=== PATIENT | female | born 1955 | race Caucasian/White ===

== ENCOUNTER 2020-10-06 16:08 | Day surgery (SDC) | payer BC ==
[2020-10-06] MEDS ORDERED: LACTATED RINGERS 1,000 ML IV ONE (16:40)
[2020-10-06] MEDS ORDERED: DEXAMETHASONE SOD PHOSPHATE 4 MG/ML 1 ML VIAL IV ONE ×2 (17:00→17:41)
[2020-10-06] MEDS ORDERED: ONDANSETRON 4 MG/2 ML VIAL IVP ONE ×2 (17:00→17:41)
[2020-10-06] MEDS ORDERED: fentaNYL (PF) 50 MCG/ML 2 ML AMP IVP ONE (17:26)
[2020-10-06] MEDS ORDERED: MIDAZOLAM 2 MG/2 ML VIAL IVP ONE (17:26)
[2020-10-06 17:40] VITALS: RESP 16; TEMP 98.8
--- NOTE | 2020-10-06 18:17 | P.HPOR ---
History of Present Illness H&P Date: 10/06/20 Chief Complaint: Left wrist fracture 65-year-old patient tripped and fell injuring her left wrist. X-rays were obtained demonstrating a displaced comminuted fracture distal radius. Review of Systems Constitutional: Reports as per HPI Past Medical History Past Medical History: Thyroid Disorder Additional Past Medical History / Comment(s): SKIN BRUISES EASILY History of Any Multi-Drug Resistant Organisms: None Reported Past Surgical History: Hernia Repair, Orthopedic Surgery Additional Past Surgical History / Comment(s): D & C Past Anesthesia/Blood Transfusion Reactions: Family History of Problems w/ Anesthesia Additional Past Anesthesia/Blood Transfusion Reaction / Comment(s): father had confusion and agitation with anesthesia Smoking Status: Never smoker Past Alcohol Use History: Occasional Past Drug Use History: None Reported - Past Family History Father Family Medical History: Cancer, CVA/TIA, Hypertension Additional Family Medical History / Comment(s): bowel,bladder,prostate. at age 85 Mother Family Medical History: Dementia Additional Family Medical History / Comment(s): at age 85 Medications and Allergies Home Medications Medication Instructions Recorded Confirmed Type Levothyroxine Sodium [Synthroid] 150 mcg PO DAILY 11/17/14 10/06/20 History HYDROcodone/APAP 7.5-325MG [[place] 1 each PO Q6HR PRN #28 tab 10/06/20 Rx 7.5] Allergies Allergy/AdvReac Type Severity Reaction Status Date / Time latex Allergy red skin Verified 10/06/20 16:43 Sulfa (Sulfonamide Allergy lips Verified 10/06/20 16:43 Antibiotics) swelling sulfamethoxazole Allergy Swelling Verified 10/06/20 17:42 [From Bactrim] trimethoprim [From Bactrim] Allergy Swelling Verified 10/06/20 17:42 Physical Examination Osteopathic Statement: *. No significant issues noted on an osteopathic structural exam other than those noted in the History and Physical/Consult. There is obvious deformity palpable about the left wrist radius. There is tenderness about the left distal radius. There is good perfusion sensation distally. The patient is able move her fingers with no pain. Her distal neurovascular exam is intact. Results - Diagnostic results Wrist/Hand MRI: image reviewed (Displaced/comminuted left distal radius fracture) Assessment and Plan Assessment: Displaced/comminuted left distal radius fracture Plan: Open reduction and internal fixation left distal radius Time with Patient: Less than 30
--- NOTE | 2020-10-06 18:31 | P.ANPRN ---
Procedure Note - Anesthesia - Nerve Block Performed Left Supraclavicular Single Time Out Performed: Yes ([id number]) Date of Procedure: 10/06/20 Procedure Start Time: 17: Procedure Stop Time: : Location of Patient: PreOp Indication: Acute Post-Operative Pain, Requested by Surgeon Specifically requested for management of pain by DrShira: Cali Barrios Sedation Type: Sedate with meaningful contact maintained Preparation: Sterile Prep Position: Supine Catheter: None Needle Types: Pajunk Needle Gauge: 21 Ultrasound used to visualize needle placement: Yes Ultrasound used to observe medication spread: Yes Injectate: 0.5% Ropivacaine (see comment for volume) (20cc) Blood Aspirated: No Pain Paresthesia on Injection Noted: No Resistance on Injection: Normal Image Stored and Saved: Yes Events: Uneventful and Well Tolerated
[2020-10-06] MEDS ORDERED: PROPOFOL 10 MG/ML 20 ML VIAL IV ONE (18:33)
[2020-10-06] MEDS ORDERED: ceFAZolin 1,000 MG VIAL ONE (18:33)
[2020-10-06] MEDS ORDERED: fentaNYL (PF) 50 MCG/ML 2 ML AMP ONE (18:33)
[2020-10-06] MEDS ORDERED: LIDOCAINE 1% INJ 10MG/ML (20 ML MDV) ONE (18:33)
[2020-10-06] MEDS ORDERED: MIDAZOLAM 2 MG/2 ML VIAL ONE (18:33)
[2020-10-06] MEDS ORDERED: ROPIVACAINE 5 MG/ML 30 ML VIAL ONE (18:33)
[2020-10-06] MEDS ORDERED: SODIUM CHLORIDE 0.9% 50 ML with ceFAZolin 2,000 MG IV ONE ×2 (18:38)
--- NOTE | 2020-10-06 19:48 | P.OP ---
Date of Procedure: 10/06/20 Preoperative Diagnosis: Comminuted/displaced left distal radius fracture Postoperative Diagnosis: Comminuted/displaced left distal radius fracture Procedure(s) Performed: Open reduction and internal fixation left distal radius Implants: Arthrex distal volar wrist plate with appropriate length screws/pegs Anesthesia: MAC, regional (Interscalene block) Surgeon: Cali Barrios Painter #1: Ryan Quintanilla Estimated Blood Loss (ml): 9 Pathology: none sent Condition: stable Disposition: PACU Indications for Procedure: 65-year-old patient seen with a displaced/comminuted left distal radius fracture. I recommended open reduction internal fixation. Patient was agreeable and consent was obtained. Operative Findings: See description of procedure Description of Procedure: Patient was taken to the operative suite after having received IV antibiotics. The patient had undergone a interscalene block for intraoperative and postoperative analgesia/anesthesia. She received IV sedation by the department of anesthesia. Well-padded tourniquet placed proximal left upper extremity. Left upper extremity prepped and draped in the normal sterile orthopedic fashion. Extremity elevated and tourniquet insufflated to 250. Standard 4 incision made sharply through skin. Blunt dissection carefully taken down to the fracture site. Hematoma evacuated. There was a comminuted displaced fracture distal radius. With the assistance of Eliecer MILLARD was able to reduce the fracture in reasonable alignment. I chose an appropriate length and size Arthrex with a volar splint. I secured it with one screw. C-arm brought into the operative field confirming adequate position of the plate. The fracture was not held in a reduced position by Eliecer MILLARD Y inserted for distal peg screws and one additional proximal locking screw. I now brought the C-arm back into the operative field and evaluated the construct under AP and lateral intraoperative imaging. We had adequate alignment of both the fracture and the fixation. Spot films were obtained to document that. The wound was copiously irrigated. The subcutaneous skin was approximated with 3-0 Vicryl. The skin is proximal right subcu trigger suture followed by skin glue. Dressings were applied The tourniquet was released and immediate capillary refill of all digits noted. The patient was placed in a soft well-padded splint. She was awakened and transferred to recovery stable condition. Eliecer MILLARD assisted with this procedure.
[2020-10-06] MEDS ORDERED: LABETALOL SYRINGE 5 MG/ML IVP ONE (20:10)
[2020-10-06 20:24] VITALS: BP 165/79; PULSE 74
--- NOTE | 2020-10-07 07:02 | FL ---
EXAMINATION TYPE: FL guidance operating room DATE OF EXAM: 10/06/2020 HISTORY: Fluoroscopy time 30 seconds of fluoroscopy provided. IMPRESSION: 1. Fluoroscopy time.
--- NOTE | 2020-10-07 08:12 | XR ---
EXAMINATION TYPE: XR wrist limited LT DATE OF EXAM: 10/06/2020 COMPARISON: NONE TECHNIQUE: Two views submitted HISTORY: Post op FINDINGS: There is postsurgical change in near anatomic alignment. There is soft tissue edema and emphysema. F racture of the distal radius noted. IMPRESSION: 1. Postoperative change. Appears in near-anatomic alignment
== END 2020-10-06 20:48 | disposition home or self-care (01) ==
LOC: OR 16:08
PROVIDERS: ATTEND Orthopaedic Surgery
DX: S52.592A Other fractures of lower end of left radius, initial encounter for closed fracture (principal); W01.0XXA Fall on same level from slipping, tripping and stumbling without subsequent striking against object, initial encounter; E07.9 Disorder of thyroid, unspecified; Z98.890 Other specified postprocedural states; Z91.040 Latex allergy status; Z79.890 Hormone replacement therapy; Z88.2 Allergy status to sulfonamides; Z82.49 Family history of ischemic heart disease and other diseases of the circulatory system; Z80.9 Family history of malignant neoplasm, unspecified; Z81.8 Family history of other mental and behavioral disorders
CPT/HCPCS: 64415; 76942; 73100; 25607; C1713; J2250; J1100; J2405; J0690; J2001; J3010; J2795; J2704

== ENCOUNTER 2021-05-08 10:45 | Emergency (ER) | payer BC ==
[2021-05-08] MEDS ORDERED: SODIUM CHLORIDE 0.9% 1,000 ML IV STA (10:52)
--- NOTE | 2021-05-08 10:56 | ED ---
General Adult HPI - General Stated complaint: neuro issues Time Seen by Provider: 05/08/21 10:48 - History of Present Illness Initial comments: Dictation was produced using Pen[employer] dictation software. please excuse any grammatical, word or spelling errors. Chief Complaint: 66-year-old female presents emergency department for ataxia, le ft-sided facial droop, slurred speech and aphasia History of Present Illness: 66-year-old female she has past medical history of thyroid disease she is brought in by who is one of our local family physicians. They woke up at approximately 10:00 AM. She was showing signs of left-sided facial droop, slurred speech, aphasia and ataxia. Patient is no history of strokes. Patient states she feels fine at the moment. Patient's last known normal was last night. at the bedside reports that she woke up with the symptoms. The ROS documented in this emergency department record has been reviewed and confirmed by me. Those systems with pertinent positive or negative responses have been documented in the HPI. All other systems are other negative and/or noncontributory. PHYSICAL EXAM: General Impression: Alert and oriented x3, not in acute distress HEENT: Normocephalic atraumatic, extra-ocular movements intact, pupils equal and reactive to light bilaterally, mucous membranes moist. Cardiovascular: Heart regular rate and rhythm Chest: Able to complete full sentences, no retractions, no tachypnea Abdomen: abdomen soft, non-tender, non-distended, no organomegaly Musculoskeletal: Pulses present and equal in all extremities, no peripheral edema Motor: no focal deficits noted Neurological: Left lower facial droop, no left-sided periorbital weakness, left upper extremity drift, mild language deficit, no slurred speech NIH 5 Skin: Intact with no visualized rashes Psych: Normal affect and mood ED course: 66-year-old feel presents with strokelike symptoms. Symptoms noted upon waking. Clinical presentation consistent with a week of stroke. Last normal was last night. Vital signs upon arrival are within acceptable limits. Patient given a NIH score of 5. Patient not a TPA candidate at this time EKG interpretation: Ventricular rate 52, sinus bradycardia, SC interval 152, QRS 70, QTC 425. No SC prolongation, no QTC prolongation, no ST or T-wave changes noted. Overall, this EKG is unremarkable Laboratory evaluation obtained. CBC unremarkable. Coag panel is negative. Metabolic panel shows no acute processes. Abdominal labs negative. Troponins negative. Computed tomography scan of the brain shows no acute processes. CT angiogram of the head and neck was obtained showing proximal right ICA occlusion occurring 7 mm above the right carotid bifurcation, moderate 60% proximal left ICA stenosis. In the head there is partial reconstitution of the right ICA at and below the right carotid terminus. There is however occlusion to subtotal occlusion of the distal M1 segment of the right MCA. Case is rediscussed with Dr. Ruiz who recommends patient be given aspirin and Lipitor and admitted for MRI. Furthermore he requests that patient follow-up on outpatient basis for angiogram. Case is discussed in detail with patient's who is one of our local primary care doctor's. He requests the patient be sent to [facility] for further care. Patient given aspirin. Case discussed with APAP for no endovascular, Rudy who is accepting of patient care. Case discussed with ER physician Dr. Ortiz was went except patient care for ER to ER transfer. - Related Data Home Medications Medication Instructions Recorded Confirmed Levothyroxine Sodium [Synthroid] 150 mcg PO DAILY 11/17/14 05/08/21 Escitalopram [Lexapro] 10 mg PO DAILY 05/08/21 05/08/21 Allergies Allergy/AdvReac Type Severity Reaction Status Date / Time latex Allergy red skin Verified 05/08/21 11:33 Sulfa (Sulfonamide Allergy lips Verified 05/08/21 11:33 Antibiotics) swelling sulfamethoxazole Allergy Swelling Verified 05/08/21 11:33 [From Bactrim] trimethoprim [From Bactrim] Allergy Swelling Verified 05/08/21 11:33 Review of Systems ROS Statement: Those systems with pertinent positive or pertinent negative responses have been documented in the HPI. ROS Other: All systems not noted in ROS Statement are negative. Past Medical History Past Medical History: Thyroid Disorder Additional Past Medical History / Comment(s): SKIN BRUISES EASILY History of Any Multi-Drug Resistant Organisms: None Reported Past Surgical History: Hernia Repair, Orthopedic Surgery Additional Past Surgical History / Comment(s): D & C Past Anesthesia/Blood Transfusion Reactions: Family History of Problems w/ Anesthesia Additional Past Anesthesia/Blood Transfusion Reaction / Comment(s): father had confusion and agitation with anesthesia Smoking Status: Never smoker Past Alcohol Use History: Occasional Past Drug Use History: None Reported - Past Family History Father Family Medical History: Cancer, CVA/TIA, Hypertension Additional Family Medical History / Comment(s): bowel,bladder,prostate. at age 85 Mother Family Medical History: Dementia Additional Family Medical History / Comment(s): at age 85 Course Vital Signs 05/08/21 05/08/21 05/08/21 10:45 11:19 11:39 Temperature 98.3 F Pulse Rate 66 48 L 48 L Respiratory 18 18 18 Rate Blood Pressure 168/80 166/79 147/79 O2 Sat by Pulse 100 98 Oximetry 05/08/21 12:37 Temperature Pulse Rate 60 Respiratory 18 Rate Blood Pressure 196/89 O2 Sat by Pulse Oximetry Medical Decision Making - Lab Data Result diagrams: 05/08/21 11:12 05/08/21 11:12 Lab Results 05/08/21 05/08/21 05/08/21 Range/Units 11:03 11:12 11:12 WBC 5.2 (3.8-10.6) k/uL RBC 4.41 (3.80-5.40) m/uL Hgb 14.8 (11.4-16.0) gm/dL Hct 44.2 (34.0-46.0) % MCV 100.3 H (80.0-100.0) fL MCH 33.6 (25.0-35.0) pg MCHC 33.5 (31.0-37.0) g/dL RDW 13.2 (11.5-15.5) % Plt Count 244 (150-450) k/uL MPV 7.7 Neutrophils % 56 % Lymphocytes % 35 % Monocytes % 5 % Eosinophils % 1 % Basophils % 1 % Neutrophils # 2.9 (1.3-7.7) k/uL Lymphocytes # 1.9 (1.0-4.8) k/uL Monocytes # 0.3 (0-1.0) k/uL Eosinophils # 0.1 (0-0.7) k/uL Basophils # 0.0 (0-0.2) k/uL PT 10.1 (9.0-12.0) sec INR 0.9 (<1.2) APTT 25.4 (22.0-30.0) sec Sodium (137-145) mmol/L Potassium (3.5-5.1) mmol/L Chloride (98-107) mmol/L Carbon Dioxide (22-30) mmol/L Anion Gap mmol/L BUN (7-17) mg/dL Creatinine (0.52-1.04) mg/dL Est GFR (CKD-EPI)AfAm (>60 ml/min/1.73 sqM) Est GFR (CKD-EPI)NonAf (>60 ml/min/1.73 sqM) Glucose (74-99) mg/dL POC Glucose (mg/dL) 102 H (75-99) mg/dL POC Glu Materials Research Engineer ID Olivia Goldberg Calcium (8.4-10.2) mg/dL Total Bilirubin (0.2-1.3) mg/dL AST (14-36) U/L ALT (4-34) U/L Alkaline Phosphatase (38-126) U/L Troponin I (0.000-0.034) ng/mL Total Protein (6.3-8.2) g/dL Albumin (3.5-5.0) g/dL 05/08/21 05/08/21 Range/Units 11:12 11:12 WBC (3.8-10.6) k/uL RBC (3.80-5.40) m/uL Hgb (11.4-16.0) gm/dL Hct (34.0-46.0) % MCV (80.0-100.0) fL MCH (25.0-35.0) pg MCHC (31.0-37.0) g/dL RDW (11.5-15.5) % Plt Count (150-450) k/uL MPV Neutrophils % % Lymphocytes % % Monocytes % % Eosinophils % % Basophils % % Neutrophils # (1.3-7.7) k/uL Lymphocytes # (1.0-4.8) k/uL Monocytes # (0-1.0) k/uL Eosinophils # (0-0.7) k/uL Basophils # (0-0.2) k/uL PT (9.0-12.0) sec INR (<1.2) APTT (22.0-30.0) sec Sodium 140 (137-145) mmol/L Potassium 3.9 (3.5-5.1) mmol/L Chloride 107 (98-107) mmol/L Carbon Dioxide 26 (22-30) mmol/L Anion Gap 7 mmol/L BUN 12 (7-17) mg/dL Creatinine 0.57 (0.52-1.04) mg/dL Est GFR (CKD-EPI)AfAm >90 (>60 ml/min/1.73 sqM) Est GFR (CKD-EPI)NonAf >90 (>60 ml/min/1.73 sqM) Glucose 110 H (74-99) mg/dL POC Glucose (mg/dL) (75-99) mg/dL POC Glu Materials Research Engineer ID Calcium 9.8 (8.4-10.2) mg/dL Total Bilirubin 1.0 (0.2-1.3) mg/dL AST 36 (14-36) U/L ALT 27 (4-34) U/L Alkaline Phosphatase 96 (38-126) U/L Troponin I <0.012 (0.000-0.034) ng/mL Total Protein 6.8 (6.3-8.2) g/dL Albumin 4.2 (3.5-5.0) g/dL Disposition Clinical Impression: Cerebrovascular accident (CVA) Disposition: OTHER INSTITUTION NOT DEFINED Referrals: Ian Jin MD [Primary Care Provider] - 1-2 days - Out of Hospital Transfer - Req. Specs Out of Hospital Transfer - Requested Specifics: Other Emergency Center ([facility])
[2021-05-08 10:59] VITALS: RESP 18; TEMP 98.3
[2021-05-08 11:05] LABS: Glucose,Whole Blood 102 mg/dL (75-99)
[2021-05-08 11:20] LABS: Basophils % (A) 1 %; Eosinophils # (A) 0.1 k/uL (0-0.7); Eosinophils % (A) 1 %; HCT 44.2 % (34.0-46.0); HGB 14.8 gm/dL (11.4-16.0); Lymphocytes # (A) 1.9 k/uL (1.0-4.8); Lymphocytes % (A) 35 %; MCH 33.6 pg (25.0-35.0); MCHC 33.5 g/dL (31.0-37.0); MCV 100.3 fL (80.0-100.0); Mean Platelet Volume 7.7; Monocytes # (A) 0.3 k/uL (0-1.0); Monocytes % (A) 5 %; Neutrophils # (A) 2.9 k/uL (1.3-7.7); Neutrophils % (A) 56 %; Platelet Count 244 k/uL (150-450); RBC 4.41 m/uL (3.80-5.40); RDW 13.2 % (11.5-15.5); WBC 5.2 k/uL (3.8-10.6)
[2021-05-08 11:31] LABS: INR 0.9 (<1.2); Partial Thromboplastin Time 25.4 sec (22.0-30.0); Prothrombin Time 10.1 sec (9.0-12.0)
[2021-05-08 11:32] LABS: ALT 27 U/L (4-34); AST 36 U/L (14-36); African American GFR (CKD) >90 (>60 ml/min/1.73 sqM); Albumin 4.2 g/dL (3.5-5.0); Alkaline Phosphatase 96 U/L (38-126); Anion Gap 7 mmol/L; Blood Urea Nitrogen 12 mg/dL (7-17); Calcium 9.8 mg/dL (8.4-10.2); Carbon Dioxide 26 mmol/L (22-30); Chloride 107 mmol/L (98-107); Glucose 110 mg/dL (74-99); Non-African American GFR(CKD) >90 (>60 ml/min/1.73 sqM); Potassium 3.9 mmol/L (3.5-5.1); Sodium 140 mmol/L (137-145); Total Protein 6.8 g/dL (6.3-8.2)
--- NOTE | 2021-05-08 11:32 | CT ---
EXAMINATION TYPE: CT brain wo con for TPA DATE OF EXAM: 05/08/2021 COMPARISON: None HISTORY: CODE STROKE, left sided facial droop CT DLP: [address] of the brain was performed. The ventricles, basal cisterns and sulci overlying the cerebral convexities demonstrate mild enlargem ent. There is no evidence for intracranial hemorrhage or sulcal effacement. There is decreased attenuation about the periventricular white matter and deep white matter of both c erebral hemispheres, compatible with chronic small vessel ischemia. Differential diagnosis does inclu de demyelination. No mass effects are seen.No midline shift. Osseous calvarium is intact. If symptoms persist consider MRI. IMPRESSION: 1. Age related atrophic and chronic small vessel ischemic change without acute intracranial process s een at this time.
--- NOTE | 2021-05-08 12:16 | CT ---
EXAMINATION TYPE: CT angio head neck DATE OF EXAM: 05/08/2021 COMPARISON: CT brain same day HISTORY: 66-year-old female CODE STROKE, left sided facial droop TECHNIQUE: Contiguous axial scanning of the head and neck performed with IV Contrast, patient injecte d with 65 ml mL of Isovue 370. Coronal/sagittal MIP reconstructions performed. 3-D reconstructions ge nerated on a dedicated independent workstation. CT DLP: 305.7 mGycm Automated exposure control for dose reduction was used. FINDINGS: NECK: Conventional arch was a branching anatomy. Mild atherosclerotic arch calcifications. The vertebral arteries are codominant and patent throughout the course. The right common carotid artery is patent. Moderate atherosclerotic plaque and calcification at the right carotid bulb with proximal right ICA o cclusion occurring 7 mm above the bifurcation. The left common carotid artery is patent. Moderate atherosclerotic calcification of plaque at the left carotid bulb with moderate, just under 6 0% proximal left ICA stenosis by NASCET criteria. HEAD: Vertebral and basilar arteries are patent as is the remainder of the posterior circulation. There is diminutive flow to the right MCA branches but with some reconstitution at the level of the c arotid terminus and cervical clinoid ICA on the right. There is occlusion to subtotal occlusion dista l M1 segment right MCA. No aneurysmal change is seen. Remainder of the anterior circulation appears patent. IMPRESSION: NECK: 1. PROXIMAL RIGHT ICA OCCLUSION OCCURRING 7 MM ABOVE THE RIGHT CAROTID BIFURCATION. 2. MODERATE, 60% PROXIMAL LEFT ICA STENOSIS. HEAD: 3. PARTIAL RECONSTITUTION OF THE RIGHT ICA AT AND BELOW THE RIGHT CAROTID TERMINUS. 4. HOWEVER, THERE IS OCCLUSION TO SUBTOTAL OCCLUSION DISTAL M1 SEGMENT RIGHT MCA. Critical findings called to Dr. Dahl in the ER at 12:10pm.
[2021-05-08] MEDS ORDERED: ASPIRIN 81 MG PO STA (12:31)
[2021-05-08 12:38] VITALS: BP 196/89; PULSE 60
--- NOTE | 2021-05-08 13:04 | XR ---
EXAMINATION TYPE: XR chest 2V DATE OF EXAM: 05/08/2021 COMPARISON: NONE HISTORY: Shortness of breath TECHNIQUE: Frontal and lateral views of the chest are obtained. FINDINGS: Scattered senescent parenchymal changes noted. Hyperinflation compatible with COPD. No evidence for infiltrate. No evidence for atelectasis. Heart size is stable. Mediastinal structures are stable and grossly unremarkable. No evidence for hilar prominence. Degenerative changes dorsal spine. IMPRESSION: 1. No evidence for acute pulmonary disease.
== END 2021-05-08 13:39 | disposition other institution (70) ==
LOC: EC 10:45
DX: I63.9 Cerebral infarction, unspecified (principal); E07.9 Disorder of thyroid, unspecified; Z91.040 Latex allergy status; Z88.2 Allergy status to sulfonamides; Z88.1 Allergy status to other antibiotic agents
CPT/HCPCS: 99285; 96360; 36415; 93005; 80053; 84484; 85025; 85610; 85730; 71046; 70496; 70450; 70498; Q9967

== ENCOUNTER → 2021-07-11 | Outpatient (CLI) | payer BC ==
--- NOTE | 2021-07-11 22:15 | US ---
EXAMINATION TYPE: US carotid duplex BILAT DATE OF EXAM: 07/11/2021 COMPARISON: CTA neck May 08, 2021 CLINICAL HISTORY: I65.29 Carotid artery stenosis. TIA Right ICA Occlusion EXAM MEASUREMENTS: RIGHT: Peak Systolic Velocity (PSV) cm/sec ----- Right CCA: 51.6 ----- Right ICA: Occlusion ----- Right ECA: 69.1 ICA/CCA ratio: RIGHT: End Diastole cm/sec ----- Right CCA: 13.3 ----- Right ICA: Occlusion ----- Right ECA: 17.7 LEFT: Peak Systolic Velocity (PSV) cm/sec ----- Left CCA: 54.1 ----- Left ICA: 160 ----- Left ECA: 60.0 ICA/CCA ratio: 2.96 LEFT: End Diastole cm/sec ----- Left CCA: 24.6 ----- Left ICA: 56.0 ----- Left ECA: 60.0 VERTEBRALS (direction of flow): Right Vertebral: Antegrade Left Vertebral: Antegrade Rhythm: Normal There is complete occlusion of right internal carotid artery shortly after its origin which correlate s with recent CTA neck study. Severe shadowing plaque left carotid bulb is redemonstrated with increa sed peak systolic and end-diastolic velocities in the left internal carotid artery and abnormal ratio . IMPRESSION: Completely occluded right internal carotid artery redemonstrated. Significant stenosis o n the left estimated to measure near 70% is redemonstrated. Criteria for Assigning % of Stenosis / Diameter reduction (Estimation based on the indirect measurements of the internal carotid artery velocities (ICA PSV). 1. Normal (no stenosis)=ICA PSV < 125 cm/s: ratio < 2.0: ICA EDV<40 cm/s. 2. Less than 50% stenosis=ICA PSV < 125 cm/s: ratio < 2.0: ICA EDV<40 cm/s. 3. 50 to 69% stenosis=ICA PSV of 125 to 230 cm/s: ration 2.0 ? 4.0: ICA EDV 40-100 cm/s. 4. Greater than 70% stenosis to near occlusion= ICA PSV > 230 cm/s: ratio > 4.0: ICA EDV > 100 cm/s. 5. Near occlusion= ICA PSV velocities may be low or undetectable: variable ratio and ICA EDV. 6. Total occlusion=unable to detect flow.
== END | disposition home or self-care (01) ==
LOC: RADUSWWP 15:00
PROVIDERS: ATTEND Family Medicine
DX: I65.23 Occlusion and stenosis of bilateral carotid arteries (principal)
CPT/HCPCS: 93880

== ENCOUNTER → 2022-04-05 | Outpatient (CLI) | payer OTHER ==
--- NOTE | 2022-04-06 07:16 | US ---
EXAMINATION TYPE: US carotid duplex BILAT DATE OF EXAM: 04/05/2022 COMPARISON: NONE CLINICAL HISTORY: I65.29 carotid stenosis. EXAM MEASUREMENTS: RIGHT: Peak Systolic Velocity (PSV) cm/sec ----- Right CCA: 55.0 ----- Right ICA: occluded ----- Right ECA: 81.7 ICA/CCA ratio: --- RIGHT: End Diastole cm/sec ----- Right CCA: 9.1 ----- Right ICA: occluded ----- Right ECA: 14.5 LEFT: Peak Systolic Velocity (PSV) cm/sec ----- Left CCA: 84.4 ----- Left ICA: 230.0 ----- Left ECA: 196 ICA/CCA ratio: 2.87 LEFT: End Diastole cm/sec ----- Left CCA: 28.0 ----- Left ICA: 80. ----- Left ECA: 12.6 VERTEBRALS (direction of flow): Right Vertebral: Antegrade Left Vertebral: Antegrade Rhythm: Normal Occluded right ICA, left ICA shows elevated velocity with calcified bulb plaque. IMPRESSION: 1. Occlusion right ICA. 2. Greater than 70% stenosis left ICA difficult to exclude. Criteria for Assigning % of Stenosis / Diameter reduction (Estimation based on the indirect measurements of the internal carotid artery velocities (ICA PSV). 1. Normal (no stenosis)=ICA PSV < 125 cm/s: ratio < 2.0: ICA EDV<40 cm/s. 2. Less than 50% stenosis=ICA PSV < 125 cm/s: ratio < 2.0: ICA EDV<40 cm/s. 3. 50 to 69% stenosis=ICA PSV of 125 to 230 cm/s: ration 2.0 ? 4.0: ICA EDV 40-100 cm/s. 4. Greater than 70% stenosis to near occlusion= ICA PSV > 230 cm/s: ratio > 4.0: ICA EDV > 100 cm/s. 5. Near occlusion= ICA PSV velocities may be low or undetectable: variable ratio and ICA EDV. 6. Total occlusion=unable to detect flow.
== END | disposition home or self-care (01) ==
LOC: RADUSWWP 14:55
PROVIDERS: ATTEND Family Medicine
DX: I65.23 Occlusion and stenosis of bilateral carotid arteries (principal)
CPT/HCPCS: 93880

== ENCOUNTER → 2023-09-05 | Outpatient (CLI) | payer BC ==
--- NOTE | 2023-09-05 23:56 | EEG ---
ELECTROENCEPHALOGRAM REPORT CLINICAL HISTORY: This is a 68-year-old woman with reported history of stroke with memory issues. The video EEG is obtained to evaluate for seizure epileptiform activity. RELEVANT MEDICATIONS: The patient is not on any antiepileptic drugs per field evidence technician report. EEG TYPE: A routine 21-channel EEG with video using the 10/20 electrode placement system. DESCRIPTION: Wakefulness is only obtained. During the awake state, the posterior-dominant rhythm consists of [id number] voltage of 8.5 to 9 hertz activity that is well modulated, well sustained. There is no physiological stage 2 sleep architecture. There is no focal slowing. Interictal and ictal is none. ACTIVATION PROCEDURE: Photic stimulation did not evoke a posterior driving response. There is no abnormality during the photic stimulation. Hyperventilation is not performed. CLINICAL INTERPRETATION: This is a normal routine EEG. There is no focal slowing, epileptiform discharge, or seizure on the EEG. A normal routine EEG does not rule out underlying epilepsy. Clinical correlation is recommended. If there continues to be a concern for possible seizures, then recommend a prolonged EEG or a sleep-deprived EEG. MMODL / IJN: [id number] / [id number]
== END ==
LOC: NEUROMAIN 08:02
PROVIDERS: ATTEND Family Medicine
DX: Z86.73 Personal history of transient ischemic attack (TIA), and cerebral infarction without residual deficits (principal); Z91.040 Latex allergy status; Z88.2 Allergy status to sulfonamides; Z88.1 Allergy status to other antibiotic agents; Z79.82 Long term (current) use of aspirin
CPT/HCPCS: 95816

== ENCOUNTER → 2023-09-10 | Outpatient (CLI) | payer BC ==
--- NOTE | 2023-09-12 13:48 | MR ---
EXAMINATION TYPE: MR angio head wo con DATE OF EXAM: 09/10/2023 9:52 PM CLINICAL INDICATION:Female, 68 years old with history of I63.9; PHH, Change in cognition. Right sided cerebral hemisphere cerebrovascular accident. COMPARISON: MRI brain same day Technical: 3-D [id number] Axial with MIP reconstruction created on a separate workstation.. IV Contrast: None Findings: Vertebral arteries: The vertebral arteries are patent. Vertebral arteries are: Codominant. Basilar artery: The basilar artery is intact. The basilar artery bifurcation is normal. 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 The right ophthalmic artery appears paten t with backflow from the right MCA. The cervical, petrous, cavernous and supraclinoid segments are no rmal. YURIY: Patent with no evidence of aneurysm. ACOM: Present without evidence of aneurysm. MCA: Patent with no evidence of aneurysm. CARCASS TRIMMER: Patent with no evidence of aneurysm. PCOM: Hypoplastic bilaterally. IMPRESSION: 1. Occluded right internal carotid artery extending out of the hvvbm-oo-hkoa inferiorly into the cir [place] of [place]. The right ophthalmic artery does appear patent with backflow from the right MCA 2. No evidence for aneurysm.
--- NOTE | 2023-09-12 13:50 | MR ---
EXAMINATION TYPE: MR brain wo/w con DATE OF EXAM: 09/10/2023 9:54 PM CLINICAL INDICATION:Female, 68 years old with history of I63.9; PHH, Change in cognition. Right sided cerebral hemisphere cerebrovascular accident. COMPARISON: MRA same day TECHNIQUE: Multi planar, multi sequence imaging was performed through the brain including: T1, T2, In version recovery, susceptibility weighted imaging and gradient echo imaging and Diffusion weighted im aging. The patient was then given intravenous contrast and multi planar, T1 fat-saturation images wer e obtained. IV Contrast: 5 cc Gadavist FINDINGS: Mild cerebral atrophy with proportional dilation of ventricular system. Diffusion-weighted imaging s hows no evidence of restricted diffusion to suggest acute/subacute infarct. Intracranial arterial prakash w voids are maintained. Midline structures show no abnormality. Scattered foci of high T2 signal inte nsity are seen within the periventricular white matter. The susceptibility weighted images do not rev eal any evidence for micro-hemorrhage. After administration of gadolinium, no abnormal enhancement is seen. Occluded right internal carotid artery extending out of the qinej-hf-hmqv into the [place] a s seen on same day angiogram. Intact flow to the right ophthalmic artery is felt to be present throug h the MCA The bone marrow signal is within normal limits. Paranasal sinuses and mastoid air cells: No significant paranasal sinus disease. Visualized orbits: Orbital contents are intact. IMPRESSION: 1. Occluded right internal carotid artery extending out of the kldra-dg-mndg into the [place] s as seen on same day angiogram. Intact flow to the right ophthalmic artery is felt to be present thr ough the MCA. 2 .No evidence of intracranial mass, acute/subacute infarct, or abnormal enhancement. 3. Nonspecific white matter changes, likely related to small vessel ischemic disease.
== END | disposition home or self-care (01) ==
LOC: RADMRIMAIN 20:45
PROVIDERS: ATTEND Family Medicine
DX: G93.89 Other specified disorders of brain (principal); I65.21 Occlusion and stenosis of right carotid artery; I63.9 Cerebral infarction, unspecified
CPT/HCPCS: 70544; 70553; A9585

== ENCOUNTER → 2023-09-17 | Outpatient (CLI) | payer BC ==
[2023-09-17 15:57] LABS: African American GFR (CKD) >90 (>60 ml/min/1.73 sqM); Blood Urea Nitrogen 15 mg/dL (7-17); Non-African American GFR(CKD) >90 (>60 ml/min/1.73 sqM)
--- NOTE | 2023-09-17 17:44 | CT ---
EXAMINATION TYPE: CT angio head neck DATE OF EXAM: 09/17/2023 4:37 PM COMPARISON: Carotid ultrasound earlier today, MR brain and MR angiogram head 09/10/2023. CLINICAL INDICATION:Female, 68 years old with history of H53.9 VISUAL DISTURBANCE; PHH, Visual distur bance Rt eye. Carotid stenosis. TECHNIQUE: Axially acquired helical CT angiogram of the head and neck was obtained with contrast. Axi al images are supplemented with 3D reconstructions which [facility] NASCET criteria used. Contrast used: 65 ml mL of Isovue 300 with IV Contrast, Oral contrast used: None. CT DLP: 273.6 mGycm, Automated exposure control for dose reduction was used. FINDINGS: CTA Neck: A 3 vessel aortic arch is shown. Atherosclerotic plaque is present in the aortic arch and at the orig in of the branch vessels with mild stenosis of each branch vessel proximally. The brachiocephalic ar helena, right subclavian artery and proximal right common carotid artery are patent. There is calcified and soft plaque at the origin of the right vertebral artery, with associated stenosis approximately 50%. Thereafter the vessel is patent to the skull base. Origin of the left vertebral artery is patent , and the rest of the vessel is patent to the skull base. Left vertebral is dominant. Right carotid system: Common carotid and bifurcation are patent. There is heavy calcific plaque in th e proximal right ICA initially causing about 50% diameter stenosis however fairly quickly tapers and becomes completely occluded and nonopacified about 1.5 cm beyond its origin. The right ECA is widely patent. Left carotid system: The common carotid is patent and the bifurcation is patent. There is funnel-shap ed soft plaque in the proximal ICA which narrows the lumen to 1.4 mm, compared to a more distal ICA m easurement of 4.2 mm corresponding to a 67% diameter stenosis. The left ICA is then patent to the [facility] ll base. The ECA is patent, there is mild atherosclerotic irregularity proximally without significant stenosis. No evidence of dissection or pseudoaneurysm of the carotid or vertebral arteries in the neck identifi ed. Other: Included lung apices are clear. No pneumothorax. Degenerative changes throughout the cervical spine without evidence of an acute osseous abnormality. CTA Head: Intracranial right ICA is completely occluded. There is reconstitution of flow seen distally with opa cified right YURIY and MCA demonstrated, secondary to collateral flow via the anterior communicating ar helena. However there is diminished caliber with irregularity throughout the right YURIY and MCA suggesti ve of atherosclerotic disease and/or diminished flow. What appears to be the right ophthalmic artery is enhancing, appears supplied from the proximal right MCA. However this also appears mildly irregula r and might represent atherosclerotic disease and/or diminished flow (and this is reported to me as t he side of the visualized disturbance). The left ophthalmic artery is believed to be patent however i s not well seen on this study. Recommend these findings be correlated with findings of ophthalmologi c exam. The left ICA is patent. Mild atherosclerotic calcification in the cavernous portion without significa nt stenosis seen. The left carotid bifurcation is patent, left MCA and YURIY are patent. Patent anterio r communicating artery. There is no evidence of major vascular occlusion or sizable aneurysm in the l imits of CTA. Intracranial vertebral arteries are patent, the left is dominant. Basilar artery is patent and of nor mal caliber. Basilar bifurcation is unremarkable without evidence of aneurysm. Bilateral supervisor filtration appear to be patent. There is a patent but relatively small caliber left posterior communicating artery seen . No sizable right posterior communicating artery is demonstrated. The dural venous sinuses appear grossly patent without evidence of thrombosis. Other: The visualized portions of the brain grossly show no acute abnormality. Redemonstration of mi ld generalized atrophy and chronic microvascular ischemic changes of the white matter. Imaged portions of the paranasal sinuses and mastoid air cells are clear. The orbits appear otherwis e grossly structurally unremarkable. No evidence of calvarial fracture. IMPRESSION: CTA neck: 1. Atherosclerotic disease along the aortic arch and origins of the branch vessels without hemodynam ically significant stenosis. 2. Right ICA is completely occluded, beginning 1.5 cm beyond the carotid bifurcation. 3. Soft plaque in the proximal left ICA causes 67% diameter stenosis. 4. Left vertebral artery is dominant, and is patent. 5. Plaque at the origin of the right vertebral artery results in about 50% diameter stenosis. CTA head: 1. Intracranial vertebral arteries and basilar artery are patent without significant stenosis. 2. Left posterior communicating artery appears present, but relatively diminutive in size. No sizabl e right posterior communicating artery is seen. 3. Intracranial left ICA, MCA and YURIY are patent. Anterior communicating artery is patent, and provi velma collateral supply to the right YURIY and MCA. 4. Right MCA and YURIY are patent, but somewhat irregular and diminutive in appearance, this may refle ct atherosclerotic disease and/or diminished flow. 5. Right ophthalmic artery is enhancing, appears supplied from the proximal right MCA. However this also appears mildly irregular and might represent atherosclerotic disease and/or diminished flow. The left ophthalmic artery is believed to be patent however is not well seen on this study. Recommend t hese findings be correlated with findings of ophthalmologic exam. 6. No sizable intracranial aneurysm detected in the limits of CTA. Findings were discussed with Dr. Matias by phone at the time of dictation.
== END | disposition home or self-care (01) ==
LOC: RADCTMAIN 15:05
PROVIDERS: ATTEND Family Medicine
DX: H53.9 Unspecified visual disturbance (principal); I65.23 Occlusion and stenosis of bilateral carotid arteries
CPT/HCPCS: 82565; 84520; 70496; 70498; 36415; Q9967

== ENCOUNTER → 2023-09-17 | Outpatient (CLI) | payer BC ==
--- NOTE | 2023-09-17 12:10 | US ---
EXAMINATION TYPE: US carotid duplex BILAT DATE OF EXAM: 09/17/2023 COMPARISON: 04/05/2022 CLINICAL INDICATION: Female, 68 years old with history of I63.9 CEREBRAL INFARCT; Hx Endarterectomy; Short Term memory loss new onset TECHNIQUE: Carotid duplex ultrasound examination. Indirect Doppler criteria was utilized. FINDINGS: EXAM MEASUREMENTS: RIGHT: Peak Systolic Velocity (PSV) cm/sec ----- Right CCA: 57 ----- Right ICA: 80 ----- Right ECA: 90 ICA/CCA ratio: 1.4 RIGHT: End Diastole cm/sec ----- Right CCA: 12 ----- Right ICA: 22 ----- Right ECA: 18 LEFT: Peak Systolic Velocity (PSV) cm/sec ----- Left CCA: 71 ----- Left ICA: 641 ----- Left ECA: 120 ICA/CCA ratio: 9.0 LEFT: End Diastole cm/sec ----- Left CCA: 23 ----- Left ICA: 231 ----- Left ECA: 120 VERTEBRALS (direction of flow): Right Vertebral: Antegrade Left Vertebral: Antegrade Rhythm: Normal DATA SCIENCE AND IOT MANAGER NOTES: Plaque at right CCA bulb and ICA, Left CCA Bulb and ICA. Intimal thickening at dis anca Left and through proximal to distal right CCA. Increased velocities at Left ICA Stenosis - turbul ent downflow. Increased left ECA velocities. There is a very high-grade stenosis of the left internal carotid artery based on velocity IMPRESSION: 1. Very high-grade stenosis left internal carotid artery well above 70%. 2. No right internal carotid artery stenosis based on velocities. Criteria for Assigning % of Stenosis / Diameter reduction (Estimation based on the indirect measurements of the internal carotid artery velocities (ICA PSV). 1. Normal (no stenosis)=ICA PSV < 125 cm/s: ratio < 2.0: ICA EDV<40 cm/s. 2. Less than 50% stenosis=ICA PSV < 125 cm/s: ratio < 2.0: ICA EDV<40 cm/s. 3. 50 to 69% stenosis=ICA PSV of 125 to 230 cm/s: ration 2.0 ? 4.0: ICA EDV 40-100 cm/s. 4. Greater than 70% stenosis to near occlusion= ICA PSV > 230 cm/s: ratio > 4.0: ICA EDV > 100 cm/s. 5. Near occlusion= ICA PSV velocities may be low or undetectable: variable ratio and ICA EDV. 6. Total occlusion=unable to detect flow.
== END | disposition home or self-care (01) ==
LOC: RADUSWWP 10:56
PROVIDERS: ATTEND Family Medicine
DX: I65.22 Occlusion and stenosis of left carotid artery (principal); I63.9 Cerebral infarction, unspecified
CPT/HCPCS: 93880

== ENCOUNTER → 2023-12-20 | Outpatient (CLI) | payer BC ==
--- NOTE | 2023-12-21 13:37 | CT ---
EXAMINATION TYPE: CT ChestAbdPelvis wo con DATE OF EXAM: 12/20/2023 INDICATION: Abnormal weight loss COMPARISON: None CT DLP: 306.5 mGycm CONTRAST: Performed without Oral Contrast. No intravenous contrast. TECHNIQUE: Axial images at 5 mm thick sections. Reconstructed images in the coronal plane. Delayed images through the kidneys. FINDINGS: CT CHEST: Thyroid is not identified. No suspicious lung nodules or focal infiltrates are present. No enlarged mediastinal or hilar adenopathy is evident. The ascending aorta diameter at the level of the main pulmonary artery is 3.6 cm. The main pulmonary artery diameter at the bifurcation is 2.7 cm. A minimal pericardial effusion may be present. CT ABDOMEN: Liver: Normal Spleen: Normal Pancreas: Normal Adrenal glands: The adrenal glands are normal. Gallbladder: Normal Kidneys: No masses are evident. No hydronephrosis is present. No cysts are present. No renal stone s are identified. Aorta: Vascular calcification is within the aorta. Inferior vena cava: Normal. CT PELVIS: Loops of bowel within the abdomen and pelvis are normal. Mild fecal debris scattered throughout the colon. A few diverticuli are present within the sigmoid colon. The study is without oral contrast l imiting bowel evaluation. Appendix: Not identified. No dilated tubular structure or inflammatory changes. Urinary bladder: Normal. Genitourinary structures: Uterus is unremarkable. Adnexal regions are normal. Osseous structures: No suspicious lytic or sclerotic lesions. IMPRESSION: 1. No suspicious primary or metastatic changes. 2. Mild diverticulosis without acute diverticulitis. 3. Minimal pericardial effusion is not excluded.
== END | disposition home or self-care (01) ==
LOC: RADCTMAIN 13:03
PROVIDERS: ATTEND Family Medicine
DX: K57.90 Diverticulosis of intestine, part unspecified, without perforation or abscess without bleeding (principal); I31.39 Other pericardial effusion (noninflammatory); R63.4 Abnormal weight loss
CPT/HCPCS: 71250; 74176